=== PATIENT | male | born 1980 | race Caucasian/White ===

== ENCOUNTER 2017-07-25 08:47 | Emergency (ER) | payer OTHER ==
[2017-07-25 09:02] VITALS: BP 140/81; PULSE 72; TEMP 98.1; BMI 27.3
[2017-07-25] MEDS ORDERED: morphine CARPU-JECT 4 MG/1 ML DISP.SYRIN IVPUSH ONE ×2 (09:33→10:36)
[2017-07-25] MEDS ORDERED: SODIUM CHLORIDE 0.9% 1000 ML INFUS.BAG IV ONE (09:34)
[2017-07-25] MEDS ORDERED: morphine CARPU-JECT 4 MG/1 ML DISP.SYRIN ONE ×2 (09:55→10:49)
[2017-07-25] MEDS ORDERED: ONDANSETRON 4 MG/2 ML VIAL ONE (09:56)
--- NOTE | 2017-07-25 10:01 | PDOC ---
History of Present Illness - General History Source: Patient Exam Limitations: No Limitations - History of Present Illness Initial Comments: 07/25/17 10:01 37 y/o M with a PMHx of kidney stones presents to the ED with left flank pain since this morning. Patient reports associated chills, nausea, and vomiting x3. Denies moderating factors. Denies fever. Denies chest pain, SOB. <ElizabethMelissa Bela - Last Filed: 07/25/17 11:37> - General History Source: Patient Exam Limitations: No Limitations <JagrutiannyJudith - Last Filed: 07/25/17 14:16> - General Chief Complaint: Pain, Acute Stated Complaint: BACK PAIN (KIDNEY) Past History <ElizabethMelissa A - Last Filed: 07/25/17 11:37> - Past Medical History Thyroid Disease: No - Suicide/Smoking/Psychosocial Hx Smoking History: Never smoked Have you smoked in the past 12 months: No Information on smoking cessation initiated: No Hx Alcohol Use: No Drug/Substance Use Hx: No Substance Use Type: None <JagrutiannyJudith - Last Filed: 07/25/17 14:16> - Past Medical History Allergies/Adverse Reactions: Allergies Allergy/AdvReac Type Severity Reaction Status Date / Time No Known Allergies Allergy Verified 07/25/17 09:02 Home Medications: Ambulatory Orders Ibuprofen [Motrin -] 600 mg PO TID PRN #60 tablet MDD 3 07/25/17 Oxycodone HCl/Acetaminophen [Percocet 5-325 mg Tablet] 1 tab PO Q6H PRN #20 tablet MDD 4 07/25/17 Tamsulosin HCl [Flomax] 0.4 mg PO HS #10 cap.er.24h 07/25/17 Review of Systems - Review of Systems Able to Perform ROS?: Yes Comments:: 07/25/17 10:01 GENERAL/CONSTITUTIONAL: (+) chills. No fever. No weakness. HEAD, EYES, EARS, NOSE AND THROAT: No change in vision. No ear pain or discharge. No sore throat. CARDIOVASCULAR: No chest pain or shortness of breath. RESPIRATORY: No cough, wheezing, or hemoptysis. GASTROINTESTINAL: (+) nausea, vomiting. No diarrhea or constipation. GENITOURINARY: (+) left flank pain. No dysuria, frequency, or change in urination. MUSCULOSKELETAL: No joint or muscle swelling or pain. No neck or back pain. SKIN: No rash NEUROLOGIC: No headache, vertigo, loss of consciousness, or change in strength/ sensation. ENDOCRINE: No increased thirst. No abnormal weight change. HEMATOLOGIC/LYMPHATIC: No anemia, easy bleeding, or history of blood clots. ALLERGIC/IMMUNOLOGIC: No hives or skin allergy. <GlennMelissa A - Last Filed: 07/25/17 11:37> *Physical Exam - Vital Signs Last Vital Signs Temp Pulse Resp BP Pulse Ox 98.1 F 72 18 140/81 100 07/25/17 08:59 07/25/17 08:59 07/25/17 08:59 07/25/17 08:59 07/25/17 08:59 - Physical Exam Comments: 07/25/17 10:01 GENERAL: Awake, alert, and fully oriented, in moderate distress. HEAD: No signs of trauma EYES: PERRLA, EOMI, sclera anicteric, conjunctiva clear ENT: Auricles normal inspection, nares patent, oropharynx clear without exudates. Moist mucosa NECK: Normal ROM, supple, no lymphadenopathy, JVD, or masses LUNGS: Breath sounds equal, clear to auscultation bilaterally. No wheezes, and no crackles HEART: Regular rate and rhythm, normal S1 and S2, no murmurs, rubs or gallops ABDOMEN: Soft, nontender, nondistended, normoactive bowel sounds. No guarding, no rebound. No masses. No CVA tenderness. EXTREMITIES: Normal range of motion, no edema. No clubbing or cyanosis. No cords, erythema, or tenderness NEUROLOGICAL: A&Ox3. Cranial nerves II through XII grossly intact. Normal speech. SKIN: Warm, Dry, normal turgor, no rashes or lesions noted. <ElizabethMelissa A - Last Filed: 07/25/17 11:37> - Vital Signs Last Vital Signs Temp Pulse Resp BP Pulse Ox 98.1 F 72 18 140/81 100 07/25/17 08:59 07/25/17 08:59 07/25/17 08:59 07/25/17 08:59 07/25/17 08:59 <Judith Collado - Last Filed: 07/25/17 14:16> ED Treatment Course - LABORATORY CBC & Chemistry Diagram: 07/25/17 09:55 07/25/17 09:55 - RADIOLOGY Radiograph Interpretation: 07/25/17 11:[address] Reported by Dr. Rasta Chavarria Impression: 5 x 9 mm left ureteral calculus with mild hydronephrosis. <Melissa Elizabeth - Last Filed: 07/25/17 11:37> - LABORATORY CBC & Chemistry Diagram: 07/25/17 09:55 07/25/17 09:55 - RADIOLOGY Radiology Studies Ordered: Category Date Time Status SPIRAL- RENAL-STONE CT [CT] Stat CT Scan 07/25/17 09:36 Ordered <Judith Collado - Last Filed: 07/25/17 14:16> Medical Decision Making - Medical Decision Making 07/25/17 09:58 37 yo male wit h/o renal colic, here with c/o left flank pain radiating to groin. started this am. severe colicky pain. no mod factors. no hematuria. no dysuria. similar to prior renal colic. pain 10/10. associated n/v x 3. on exam awake, mild distress. cardiac rrr no mrg. lungs ctab. abd soft nt, nd. no cva tenderness. skin warm well perfused. no rash. nuero alert oriented x 3. differential: renal colic, uti pyelo, plan ua labs pain control antiemetics, ct a/p wo. reassess. iv hyration. 07/25/17 14:07 d/w dr brar urologist can see pt in office immediately following dc t home with rx for percocet flomax and motrin. pt feels better. ua negative. creatinine normal. <Judith Collado - Last Filed: 07/25/17 14:16> *DC/Admit/Observation/Transfer - Attestations Scribe Attestion: 07/25/17 10:01 Documentation prepared by Melissa Elizabeth, acting as emergency medical tech for Judith Collado MD. <Melissa Elizabeth - Last Filed: 07/25/17 11:37> - Discharge Dispostion Admit: No <Judith Collado - Last Filed: 07/25/17 14:16> Diagnosis at time of Disposition: Renal colic on left side - Discharge Dispostion Disposition: HOME - Prescriptions Prescriptions: Tamsulosin HCl [Flomax] 0.4 mg PO HS #10 cap.er.24h Ibuprofen [Motrin -] 600 mg PO TID PRN #60 tablet MDD 3 PRN Reason: Pain Oxycodone HCl/Acetaminophen [Percocet 5-325 mg Tablet] 1 tab PO Q6H PRN #20 tablet MDD 4 PRN Reason: Pain - Referrals Referrals: Hiwot Jauregui MD [Primary Care Provider] - Han Bloom MD [Staff Physician] - - Patient Instructions Printed Discharge Instructions: Kidney Stones -- Adult Additional Instructions: you can take ibuprofen 600 mg every 8 hours as needed for pain. return for inability to urinate, fever, or worsening symptoms. follow up with Dr Gastelum immediately following. go directly to his office across the street. see referral information. you should drink plenty of liquids. take flomax 0.4 mg nightly x 10 days. you can take percocet one every 6 hours as needed for pain not relieved by motrin. while you are taking this medication you should take a stool softner such as sennakot, miralax three times daily.
[2017-07-25] MEDS ORDERED: ONDANSETRON 4 MG/2 ML VIAL IVPUSH ONE (10:03)
[2017-07-25 10:08] LABS: BASOPHIL 0.5 % (0-2.0); EOSINOPHIL 1.1 % (0-4.5); MCH 30.4 pg (25.7-33.7); MCHC 34.4 g/dl (32.0-35.9); MEAN CELL VOLUME 88.5 fl (80-96); MEAN PLT VOLUME 8.6 fl (7.5-11.1); NEUTROPHILS 67.8 % (42.8-82.8); PLATELET COUNT 259 K/MM3 (134-434); RDW 13.5 % (11.9-15.9); WHITE BLOOD COUNT 11.5 K/mm3 (4.0-10.0)
[2017-07-25 10:27] LABS: ALBUMIN 3.9 g/dl (3.4-5.0); ALK PHOS 65 U/L (45-117); ANION GAP 8 (8-16); BILIRUBIN,TOTAL 0.8 mg/dL (0.2-1.0); CO2 24 mmol/L (21-32); CREATININE 1.1 mg/dL (0.7-1.3); GLUCOSE,RANDOM 147 mg/dL (74-106); SGPT/ALT 40 U/L (12-78); TOT PROT 8.2 g/dl (6.4-8.2)
[2017-07-25 10:30] LABS: SGOT/AST 29 U/L (15-37)
[2017-07-25] MEDS ORDERED: KETOROLAC TROMETHAMINE 30 MG/1 ML VIAL ONE (10:37)
[2017-07-25] MEDS ORDERED: KETOROLAC TROMETHAMINE 30 MG/1 ML VIAL IVPUSH ONE (10:37)
[2017-07-25 12:50] LABS: URINE APPEARANCE TURBID; URINE BILIRUBIN NEGATIVE (NEGATIVE); URINE BLOOD 3+ (NEGATIVE); URINE COLOR YELLOW; URINE GLUCOSE (UA) 1+ (NEGATIVE); URINE KETONE TRACE (NEGATIVE); URINE LEUK ESTERASE NEGATIVE (NEGATIVE); URINE NITRITE NEGATIVE (NEGATIVE); URINE UROBILINOGEN NEGATIVE mg/dL (0.2-1.0)
[2017-07-25 12:52] LABS: URINE PROTEIN 1+ (NEGATIVE)
[2017-07-25 12:54] LABS: URINE MUCUS MANY; URINE RBC 32 /hpf (0-3); URINE WBC 1 /hpf (3-5)
[2017-07-25] MEDS ORDERED: TAMSULOSIN HCL 0.4 MG CAP.ER.24H (FP) PO ONE (13:23)
[2017-07-25] MEDS ORDERED: TAMSULOSIN HCL 0.4 MG CAP.ER.24H (FP) ONE (13:34)
== END 2017-07-25 14:24 | disposition home or self-care (01) ==
LOC: JER 08:47
PROC: 3E033NZ Introduction of Analgesics, Hypnotics, Sedatives into Peripheral Vein, Percutaneous Approach (ICD-10-PCS; principal; 2017-07-25)
PROC: 3E033GC Introduction of Other Therapeutic Substance into Peripheral Vein, Percutaneous Approach (ICD-10-PCS; 2017-07-25)
PROC: 3E0333Z Introduction of Anti-inflammatory into Peripheral Vein, Percutaneous Approach (ICD-10-PCS; 2017-07-25)
DX: N13.2 Hydronephrosis with renal and ureteral calculous obstruction (principal); Z87.442 Personal history of urinary calculi
CPT/HCPCS: 36415; 74176; 80053; 81003; 81015; 85025; 87086; 96374; 96375; 99282-25

== ENCOUNTER 2017-11-25 20:51 | Emergency (ER) | payer OTHER ==
--- NOTE | 2017-11-25 21:39 | PDOC ---
Rapid Medical Evaluation Chief Complaint: Cold Symptoms Time Seen by Provider: 11/25/17 21:30 Medical Evaluation: Allergies Allergy/AdvReac Type Severity Reaction Status Date / Time No Known Allergies Allergy Verified 07/25/17 09:02 11/25/17 21:34 have performed a brief in-person evaluation of this patient. The patient presents with a chief complaint of: cough, fevers, body aches, malaise. x 5 days. Pertinent physical exam findings: Pale, moist cough. , mild erythema I have ordered the following: Ibuprofen 400mg PO given - probablw influenza but past window for treatment - no testing The patient will proceed to the ED for further evaluation. 11/25/17 21:39 Discharge Disposition - Referrals Referrals: Fidel Loya MD [Primary Care Provider] - - Patient Instructions - Post Discharge Activity
[2017-11-25 21:40] VITALS: BP 127/63; PULSE 82; TEMP 98.1; BMI 24.0
[2017-11-25] MEDS ORDERED: IBUPROFEN 400 MG TABLET (FP) PO ONE (21:44)
--- NOTE | 2017-11-25 22:41 | PDOC ---
History of Present Illness - General Chief Complaint: Cold Symptoms Stated Complaint: COLD SYMPTOMS Time Seen by Provider: 11/25/17 21:30 History Source: Patient Exam Limitations: No Limitations - History of Present Illness Initial Comments: 11/25/17 22:38 Agent came to emergency department after 5 days of fevers, cough, body aches sore throat pain and influenzal type symptoms. States has been using over-the- counter medications with some minimal resolved. Worst of fever was 3 days ago. Timing/Duration: reports: constant, changing over time Severity: reports: mild, moderate Modifying Factors: improves with: coughing Associated Symptoms: reports: fever/chills, headache, nasal congestion, nasal drainage, sore throat Past History - Travel Traveled outside of the country in the last 30 days: No Close contact w/someone who was outside of country & ill: No - Past Medical History Allergies/Adverse Reactions: Allergies Allergy/AdvReac Type Severity Reaction Status Date / Time No Known Allergies Allergy Verified 11/25/17 21:36 Home Medications: Ambulatory Orders Ibuprofen [Motrin -] 600 mg PO TID PRN #60 tablet MDD 3 07/25/17 Oxycodone HCl/Acetaminophen [Percocet 5-325 mg Tablet] 1 tab PO Q6H PRN #20 tablet MDD 4 07/25/17 Tamsulosin HCl [Flomax] 0.4 mg PO HS #10 cap.er.24h 07/25/17 Thyroid Disease: No - Suicide/Smoking/Psychosocial Hx Smoking History: Never smoked Have you smoked in the past 12 months: No Hx Alcohol Use: No Drug/Substance Use Hx: No Substance Use Type: None Review of Systems - Review of Systems Able to Perform ROS?: Yes Is the patient limited Kazakh proficient: Yes Constitutional: Yes: Symptoms Reported, See HPI, Chills, Fever, Loss of Appetite , Malaise HEENTM: Yes: Symptoms Reported, See HPI, Nose Congestion, Throat Pain Respiratory: Yes: Symptoms reported, See HPI, Cough. No: Wheezing Musculoskeletal: Yes: Symptoms Reported, See HPI, Muscle Pain Integumentary: No: Symptoms Reported All Other Systems: Reviewed and Negative *Physical Exam - Vital Signs Last Vital Signs Temp Pulse Resp BP Pulse Ox 98.1 F 82 16 127/63 97 11/25/17 21:36 11/25/17 21:36 11/25/17 21:36 11/25/17 21:36 11/25/17 21:36 - Physical Exam General Appearance: Yes: Nourished, Appropriately Dressed, Apparent Distress, Mild Distress HEENT: positive: ANITA (glassy), TMs Normal (congested but landmarks easily visualized), Tonsillar Erythema, Rhinorrhea. negative: Normal ENT Inspection, Pharynx Normal Neck: positive: Supple, Lymphadenopathy (R), Lymphadenopathy (L). negative: Tender Respiratory/Chest: positive: Lungs Clear, Normal Breath Sounds. negative: Wheezing Gastrointestinal/Abdominal: positive: Soft. negative: Tender Musculoskeletal: positive: Normal Inspection Extremity: positive: Normal Capillary Refill, Normal Inspection Integumentary: positive: Dry, Warm, Pale Neurologic: positive: monument installer II-XII NML intact, Fully Oriented, Alert, Normal Mood/ Affect, Normal Response, Motor Strength 03/04 ED Treatment Course - Medications Given in the ED: ED Medications Discontinued Medications Generic Name Dose Route Start Last Admin Trade Name Freq PRN Reason Stop Dose Admin Ibuprofen 400 mg 11/25/17 21:44 11/25/17 21:47 Motrin - PO 11/25/17 21:45 400 mg ONCE ONE Administration Progress Note - Progress Note Progress Note: e influenzal type illness, too late for Tamiflu as is 5 days into illness. We' ll treat conservatively *DC/Admit/Observation/Transfer Diagnosis at time of Disposition: Influenzal acute upper respiratory infection - Discharge Dispostion Disposition: HOME Condition at time of disposition: Stable Admit: No - Referrals Referrals: Fidel Loya MD [Primary Care Provider] - - Patient Instructions Printed Discharge Instructions: DI for Viral Upper Respiratory Infection -- Adult Additional Instructions: Rest, drink lots of fluids: Teas, water, soups, Pedialyte Saltwater gargles Steamy showers/seem to face break up mucus Old-fashioned treatments help! Avoid contact with others until fevers and cough resolved as this is very contagious Lots of handwashing and good hygiene Continue [id number] medications for symptomatic relief Tylenol or Motrin for fever and pain Followup with private physician in one to 2 days as needed or if worsening Return to emergency department for worsened symptoms, fevers, dehydration Influenza takes between 5 and 7 days for resolution To not participate in any activity, work, or school until fevers and cough are gone for at least one day - Post Discharge Activity Forms/Work/School Notes: Back to Work
== END 2017-11-25 22:39 | disposition home or self-care (01) ==
LOC: JER 20:51 → JERFT 20:51
DX: J11.1 Influenza due to unidentified influenza virus with other respiratory manifestations (principal)
CPT/HCPCS: 99281-25